=== PATIENT | female | born 2000 | race Asian ===

== ENCOUNTER 2024-07-30 07:40 | Emergency (ER) | payer OTHER ==
[~2024-07-30] VITALS: Ht 170.2 cm; Wt 76.0 kg
[2024-07-30 07:53] VITALS: O2SAT 100
[2024-07-30 07:55] VITALS: TEMP 37.1; O2SAT 99
[2024-07-30] MEDS ORDERED: IBUP-2030 MT (09:03)
[2024-07-30] MEDS ORDERED: AMOX1TAB16 MT (09:03)
[2024-07-30 09:09] VITALS: BP 119/68; PULSE 76; RESP 16; TEMP 98.8
[2024-07-30] MEDS: ACETAMINOPHEN 500MG TABLET PO ONE (09:09)
[2024-07-30] MEDS: KETOROLAC 30MG/ML VIAL IM ONE (09:09)
== END 2024-07-30 09:29 | disposition home or self-care (01) ==
LOC: ER 07:40
DX: K01.1 Impacted teeth (principal)
CPT/HCPCS: 99283; 96372; J1885